=== PATIENT | female | born 1980 | race Caucasian/White ===

== ENCOUNTER → 2020-06-13 13:04 | Outpatient (BNVA) | payer SELFPAY | PROVIDERS: Family Provider Family Medicine; PCP Nurse Practitioner Family; Visit Provider Surgery | DX: Z01.812 Encounter for preprocedural laboratory examination (principal); Z20.828 Contact with and (suspected) exposure to other viral communicable diseases | CPT/HCPCS: 87635 ==

== ENCOUNTER 2020-06-19 06:47 | Day surgery (SDC) | payer SELFPAY ==
[2020-06-18 14:59] VITALS: BMI 27.9
[2020-06-19 07:14] VITALS: BP 111/70; PULSE 62; RESP 18; TEMP 36.2; O2SAT 98
[2020-06-19] MEDS: sodium chloride 0.9% 1,000 ML 30 ML IV (07:28)
--- NOTE | 2020-06-19 08:16 | ANES.PREANE2 ---
Pre-Anesthetic Assessment Pre-Anesthetic Assessment: Height/Weight: Height 1.55 m Weight 67.132 kg Temp Pulse Resp BP Pulse Ox 97.2 F L 62 18 111/70 98 06/19/20 07:14 06/19/20 07:14 06/19/20 07:14 06/19/20 07:14 06/19/20 07:14 Proposed Procedure: Operation Date: 06/19/20 08:20 Proposed Procedures p Excision of Epigastric mass/repair of epigastric hernia 16602 [id number] R19.06 K42.9(Not Applicable) - Mykel Benito MD s Umbilical Hernia Repair [id number] R19.06 K42.9(Not Applicable) - Mykel Benito MD Was Beta Milton taken within 24 hours: N/A Last intake: Intake Last Liquid Date 06/18/20 Last Solid Date 06/18/20 Social: Social History: Tobacco and No alcohol Exam: Pre-Anes Outpt Exam: alert, oriented x 3, clear to auscultation bilaterally and regular rate & rhythm Airway: Submandibular: WNL Cervical ROM: WNL MP: 2 History/ROS: No significant complaints Pulmonary: Pulmonary: None reported CV/HEM: CV/HEM: None reported : : None reported Hepatic: Hepatic: None reported GI: GI: None reported Metabolic: Metabolic: None reported Musc/skel: Musc/skel: Weakness Neuropsych: Neuropsych: None reported Anesthetic Plan: ASA status: 2 Anesthesia: General Meds/Allergies Current Medications: Current Medications Generic Name Dose Route Start Last Admin Trade Name Freq PRN Reason Stop Dose Admin Sodium Chloride 1,000 mls @ 30 ml s/hr 06/19/20 07:00 06/19/20 07:28 Sodium Chloride 0.9% IV 06/20/20 06:59 30 mls/hr .Q24H CALVIN Administration PFSH Anesthesia PFSH: Family History Grandfather Diabetes Social History Smoking and tobacco status: current every day smoker cigarettes Packs smoked per day: 0.5 Alcohol intake: never Desire information about alcohol rehabilitation?: No Counseling given: No Desire information about substance/drug rehabilitation?: No Counseling given: No Adopted: No Caregiver/support person: No Lives independently: Yes Household members: spouse Housing: House Marital status: Number of children: 4 Highest education level completed: High School Graduate service: No Current occupational status: unemployed History of recent travel: No Female Reproductive History: Para: 4 Data Anesthesia Cardiac Studies: No Data to Display
--- NOTE | 2020-06-19 08:24 | W.PM.OPSUD ---
Surgery/Procedure H&P Update DATE OF PROCEDURE: June 19, 2020 DATE H&P PERFORMED: 06/18/20 H&P UPDATE INFORMATION: No changes to prior documentation PREOP DIAGNOSIS: 1. Epigastric mass/hernia.2. Umbilical hernia. PLANNED PROCEDURE: Operation Date: 06/19/20 08:20 Proposed Procedures p Excision of Epigastric mass/repair of epigastric hernia [id number] R19.06 K42.9(Not Applicable) - Mykel Benito MD s Umbilical Hernia Repair [id number] R19.06 K42.9(Not Applicable) - Mykel Benito MD
--- NOTE | 2020-06-19 09:07 | P.OP_ITS ---
Operative Report Date of procedure: June 19, 2020 Pre-op Diagnosis: 1. Epigastric mass/hernia.2. Umbilical hernia. Post-op Diagnosis: 1. Epigastric lipoma measuring over 4 cm in diameter. 2. Umbilical hernia. Procedure Done: 1. Excision of 4+ centimeter lipoma from epigastric region. 2. Repair of umbilical hernia. Specimens removed/disposition: Epigastric lipoma. Surgeon: Mykel Benito Anesthesia: General (LMA) Estimated blood loss (mL): 5 Complications: None. Condition: stable Disposition: PACU Procedure: The patient was brought to the operating room and was placed in a supine position on the operating room table. General anesthesia was induced by means of a laryngeal mask airway. The abdomen was prepped and draped in a sterile fashion. A combination of 1% lidocaine and 0.5% bupivacaine with 1- 200,000 parts epinephrine was used for local anesthesia throughout the procedures. Attention was first directed to the epigastric region. A transverse incision was carried out over the subcutaneous mass and cautery was used to divide the subcutaneous tissue. A well encapsulated lipomatous mass measuring approximately 6-7 cm in greatest diameter was encountered and was removed from the subcutaneous layer. No fascial defect was found anywhere underneath. The wound was irrigated with saline. The dermis was approximated using multiple inverted, interrupted sutures of 3-0 Vicryl and the skin was approximated using a running subcuticular suture of 3-0 Vicryl. A curvilinear incision was then carried out underneath the umbilicus. Sharp dissection and cautery were used to separate the dependent portion of the umbilical skin from the hernia sac. The herniated contents were then freed from the surrounding subcutaneous tissue down to the fascial defect using cautery. The herniated contents were then reduced through the defect which measured approximately 1 cm in diameter. The defect was closed transversely using inverted interrupted sutures of 0 Prolene. Sutures of of 0 Vicryl was used to buttress the repair in between the Prolene sutures. The dependent portion of the umbilical skin was brought back down to the fascial layer with a suture of 0 Vicryl. The wound was irrigated. The skin was reapproximated at the dermal level using some inverted interrupted sutures of 3-0 Vicryl. The skin was approximated using a running subcuticular suture of 4-0 Vicryl. Benzoin and Steri-Strips were placed over the incisions and sterile bandages followed. The patient was taken to the recovery area in stable condition postoperatively.
[2020-06-19 09:12] VITALS: BP 148/72; PULSE 80; RESP 8; TEMP 36.7; O2SAT 96
[2020-06-19 09:15] VITALS: PULSE 78; RESP 14; O2SAT 100
[2020-06-19 09:20] VITALS: BP 127/75; PULSE 79; RESP 18; O2SAT 98
[2020-06-19 09:25] VITALS: BP 122/75; PULSE 77; RESP 20; O2SAT 100
[2020-06-19] MEDS: ondansetron 2 mg/ML SDV 2 mL 4 MG IVP ×2 (09:28→13:17)
[2020-06-19 09:30] VITALS: BP 123/75; PULSE 85; RESP 20; TEMP 36.7; O2SAT 94
--- NOTE | 2020-06-19 10:15 | ANE.PACU2 ---
Inpatient post-anesthesia follow up: Airway intact: Yes Vital signs: Temperature 98.0 F Pulse Rate 85 Respiratory Rate 20 Blood Pressure 123/75 Pulse Oximetry 94 Oxygen Delivery Me thod Room Air Oxygen Flow Rate 6 Fraction of Inspir ed Oxygen Hydration adequate: Yes Nausea and vomiting: No Pain level: 2 Mental status: Baseline
[2020-06-19] MEDS: HYDROcodone-acetaminophen 5-325 mg Tablet 1 TAB PO (13:17)
== END 2020-06-19 10:10 | disposition home or self-care (01) ==
PROVIDERS: Family Provider Family Medicine; PCP Nurse Practitioner Family; Visit Provider Surgery
PROC: (CPT 11406; principal; 2020-06-19 08:15)
PROC: (CPT 11406; 2020-06-19 08:15)
DX: D17.1 Benign lipomatous neoplasm of skin and subcutaneous tissue of trunk (principal); K42.9 Umbilical hernia without obstruction or gangrene; F17.210 Nicotine dependence, cigarettes, uncomplicated
CPT/HCPCS: 11406; 12032; 49585; 12345; 88307; 96374; J0690; J1100; J1200; J1885; J2250; J2405; J2704; J3010; J3490; J7030

== ENCOUNTER 2020-07-07 09:29 | Outpatient (CLI) | payer SELFPAY | END 2020-07-07 09:30 | disposition home or self-care (01) | LOC: LAB 09:32 | PROVIDERS: PCP Nurse Practitioner Family; Visit Provider Nurse Practitioner Family | DX: N30.90 Cystitis, unspecified without hematuria (principal) | CPT/HCPCS: 87086 ==

== ENCOUNTER → 2021-06-10 10:16 | Outpatient (BNVA) | payer SELFPAY | PROVIDERS: PCP Nurse Practitioner Family; Visit Provider Nurse Practitioner Family | DX: J06.9 Acute upper respiratory infection, unspecified (principal); J40 Bronchitis, not specified as acute or chronic; R05.9 Cough, unspecified | CPT/HCPCS: 80053 ==

== ENCOUNTER 2023-04-23 18:17 | Emergency (ER) | payer OTHER, SELFPAY ==
[2023-04-23 18:24] VITALS: BP 138/102; PULSE 96; RESP 17; TEMP 36.4; O2SAT 95; BMI 29.2
--- NOTE | 2023-04-23 18:30 | XRR_ITS ---
PROCEDURE INFORMATION: Exam: XR Chest Exam date and time: 04/23/2023 6:35 PM Age: 42 years old Clinical indication: Shortness of breath; Patient HX: Allergic rxn; Additional info: SOB TECHNIQUE: Imaging protocol: Radiologic exam of the chest. Views: 1 view. COMPARISON: No relevant prior studies available. FINDINGS: Lungs: Unremarkable. No consolidation. Pleural spaces: Unremarkable. No pleural effusion. No pneumothorax. Heart/Mediastinum: Unremarkable. No cardiomegaly. Bones/joints: Unremarkable. XR/XR chest 1V portable [id number] IMPRESSION: No acute findings.
[2023-04-23] MEDS: EPINEPHrine 1 mg/mL INJ 0.3 MG IM (18:34)
[2023-04-23] MEDS: diphenhydrAMINE 50 mg/mL SDV 1mL IVP (18:36)
[2023-04-23] MEDS: famotidine 20 mg/2 mL INJ IVP (18:37)
[2023-04-23] MEDS: methylPREDNISolone sod succ 125 mg/2 mL INJ IVP (18:37)
[2023-04-23 18:46] VITALS: BP 101/78; PULSE 99; RESP 18; O2SAT 100
[2023-04-23 18:54] LABS: Basophils % 0.2 %; Eosinophils # 0.1 10^3/uL (0.0-0.8); Hematocrit 42.1 % (36-47); Lymphocytes # 4.1 10^3/uL (0.8-4.8); Lymphocytes % 33.6 %; Mean Corpuscular HGB Conc 33.7 g/dL (30-55); Mean Corpuscular Hemoglobin 30.7 pg (27-33); Mean Corpuscular Volume 91.1 fl (85-98); Mean Platelet Volume 10.4 fL (7.4-10.4); Monocytes # 0.9 10^3/uL (0.2-0.9); Monocytes % 7.5 %; Neutrophils # 6.97 10^3/uL (1.8-7.7); Neutrophils % 57.3 %; Nucleated Red Blood Cells % 0 %; Platelet Count 371 10^3/cmm (157-399); Red Blood Count 4.62 10^6/uL (3.85-5.65); Red Cell Distribution Width 12.6 % (12.1-15.1); White Blood Count 12.19 10^3/uL (3.29-11.43)
[2023-04-23 19:04] LABS: HCG, Serum Qual Negative (Negative)
[2023-04-23 19:07] VITALS: BP 146/76; PULSE 109; RESP 23; O2SAT 96
[2023-04-23 19:10] LABS: Alanine Aminotransferase 15 U/L (0-33); Albumin Level 4.6 g/dL (3.5-5.2); Alkaline Phosphatase 64 U/L (35-105); Anion Gap 15.9 (5-19); Aspartate Amino Transferase 20 U/L (0-32); Blood Urea Nitrogen 6 mg/dL (6-20); Calcium 9.4 mg/dL (8.5-10.5); Carbon Dioxide 25 mmol/L (22-29); Chloride 107 mmol/L (98-107); Globulin 2.7 g/dL (1.3-4.6); Glomerular Filtration Rate 90.9 mL/min (90-130); Glucose 113 mg/dL (65-115); Osmolality Calculated 296 mOsm/kg (285-295); Potassium 3.9 mmol/L (3.5-5.1); Sodium 144 mmol/L (136-145); Total Bilirubin 0.3 mg/dL (0.15-1.2); Total Protein 7.3 g/dL (6.6-8.7)
[2023-04-23 20:17] VITALS: BP 146/76; PULSE 109; RESP 23; TEMP 36.4; O2SAT 96
--- NOTE | 2023-04-23 21:38 | ED_ITS ---
HPI - Allergic Reaction 2 General: Chief complaint: Allergic Reaction Stated complaint: alergic reaction sob Time Seen by Provider: 04/23/23 18:23 History of Present Illness: HPI narrative: 42-year-old female who has been ill with cough and congestion. She was prescribed Augmentin today, and has taken the medication. Sometime following taking the medication, she developed itchiness in a widespread fashion, some redness to her skin, a feeling of a lump in her throat, and some mild trouble breathing. No vomiting. No diarrhea. Associated symptoms: Reports hoarseness and nausea; Deny abdominal pain or vomiting Review of Systems 2 Const: Denies: fever(s) Eyes: Denies: change in vision ENMT: Reports: throat pain and hoarseness; Denies: swelling of lips/tongue Card: Denies: chest pain or palpitations Resp: Reports: dyspnea and non-productive cough GI: Reports: nausea; Denies: abdominal pain or vomiting PFSH ED 2 PFSH: Family History Grandfather Diabetes Social History Smoking and tobacco/nicotine status: former use of tobacco/nicotine (years ago) Alcohol intake: never Substance/Drug Use: never Adopted: No Caregiver/support person: No Lives independently: Yes Household members: spouse Housing: House Marital status: Number of children: 4 Highest education level completed: High School Graduate service: No Current occupational status: unemployed Female Reproductive History: Para: 4 Physical Exam 2 Const: GENERAL APPEARANCE: cooperative, in distress (Mild) and anxious; not frail appearing HENMT: COMMON NORMALS: normocephalic, atraumatic and Normal external nose present HEAD & SCALP: normocephalic and atraumatic FACE & SINUS: normal facial exam and face symmetric NOSE: Normal external nose present Eye: COMMON NORMALS: Equal, round and reactive pupils present and EOMs intact bilaterally PUPIL: Yes Equal, round and reactive pupils present Neck/C-Spine: GENERAL: Yes trachea midline Chest: CHEST: Yes Symmetrical chest wall rise Resp: COMMON NORMALS: normal respiratory effort, No retractions, No use of accessory muscles and clear to auscultation bilaterally EFFORT & INSPECTION: No stridor AUSCULTATION: clear to auscultation bilaterally and no wheezes Cardio: COMMON NORMALS: regular rate and regular rhythm RATE: regular rate RHYTHM: regular rhythm GI: COMMON NORMALS: Normal to inspection, nondistended, normoactive bowel sounds present Extremity: COMMON NORMALS: no pedal edema Neuro: MARSHA COMA SCALE: document GCS findings Marsha coma scale eye opening: Spontaneous [place] coma scale verbal response: Orientated [place] coma scale motor response: Obey commands Marsha coma scale total score: 15 S ENSORY EXAM: Yes extremities (intact) Psych: COMMON NORMALS: speech normal SPEECH: Yes normal speech Skin: NARRATIVE SKIN EXAM: Generalized skin redness Course 2 Vital Signs: Vital signs: Vital Signs Temperature 97.6 F 04/23/23 20:17 Pulse Rate 109 H 04/23/23 20:17 Respiratory Rate 23 H 04/23/23 20:17 Blood Pressure 146/76 04/23/23 20:17 Pulse Oximetry 96 04/23/23 20:17 Oxygen Delivery Me thod Room Air 04/23/23 19:07 MDM - Allergic Reaction Medical Decision Making Patient was given epinephrine, Solu-Medrol, Benadryl and Pepcid on arrival. She is much improved. No signs of rebound. She will be discharged on a steroid taper to prevent rebound. She will take Benadryl for the next 24 hours then as needed, to return for any worsening symptoms. She will discontinue her Augmentin obviously. Azithromycin as prescribed instead. Outpatient follow-up. Lab Data 04/23/23 18:43 04/23/23 18:43 Radiology Impressions Chest X-Ray 04/23/23 18:30 IMPRESSION: No acute findings. Laboratory Results WBC 12.19 10^3/uL (3.29-11.43) H 04/23/23 18:43 RBC 4.62 10^6/uL (3.85-5.65) 04/23/23 18:43 Hgb 14.20 g/dL (11.27-16.99) 04/23/23 18:43 Hct 42.1 % (36-47) 04/23/23 18:43 MCV 91.1 fl (85-98) 04/23/23 18:43 MCH 30.7 pg (27-33) 04/23/23 18:43 MCHC 33.7 g/dL (30-55) 04/23/23 18:43 RDW 12.6 % (12.1-15.1) 04/23/23 18:43 Plt Count 371 10^3/cmm (157-399) 04/23/23 18:43 MPV 10.4 fL (7.4-10.4) 04/23/23 18:43 Neut % (Auto) 57.3 % 04/23/23 18:43 Lymph % (Auto) 33.6 % 04/23/23 18:43 [place] % (Auto) 7.5 % 04/23/23 18:43 Eos % (Auto) 1.0 % 04/23/23 18:43 Baso % (Auto) 0.2 % 04/23/23 18:43 Neut # (Auto) 6.97 10^3/uL (1.8-7.7) 04/23/23 18:43 Lymph # (Auto) 4.1 10^3/uL (0.8-4.8) 04/23/23 18:43 [place] # (Auto) 0.9 10^3/uL (0.2-0.9) 04/23/23 18:43 Eos # (Auto) 0.1 10^3/uL (0.0-0.8) 04/23/23 18:43 Baso # (Auto) 0.0 10^3/uL (0.0-0.1) 04/23/23 18:43 Nucleated RBC % (auto) 0 % 04/23/23 18:43 Nucleated RBCs # 0.0 /100WBC 04/23/23 18:43 Sodium 144 mmol/L (136-145) 04/23/23 18:43 Potassium 3.9 mmol/L (3.5-5.1) 04/23/23 18:43 Chloride 107 mmol/L (98-107) 04/23/23 18:43 Carbon Dioxide 25 mmol/L (22-29) 04/23/23 18:43 Anion Gap 15.9 (5-19) 04/23/23 18:43 BUN 6 mg/dL (6-20) 04/23/23 18:43 Creatinine 0.7 mg/dL (0.5-0.9) 04/23/23 18:43 GFR Calculation 90.9 mL/min (90-130) 04/23/23 18:43 Glucose 113 mg/dL (65-115) 04/23/23 18:43 Calculated Osmolality 296 mOsm/kg (285-295) H 04/23/23 18:43 Calcium 9.4 mg/dL (8.5-10.5) 04/23/23 18:43 Total Bilirubin 0.3 mg/dL (0.15-1.2) 04/23/23 18:43 AST 20 U/L (0-32) 04/23/23 18:43 ALT 15 U/L (0-33) 04/23/23 18:43 Alkaline Phosphatase 64 U/L (35-105) 04/23/23 18:43 Total Protein 7.3 g/dL (6.6-8.7) 04/23/23 18:43 Albumin 4.6 g/dL (3.5-5.2) 04/23/23 18:43 Globulin 2.7 g/dL (1.3-4.6) 04/23/23 18:43 HCG, Qual Negative (Negative) 04/23/23 18:43 All radiology interpretation(s) finalized by discharge Discharge Plan Discharge Patient Disposition: Home Clinical Impression: Allergic reaction Condition: Stable Prescriptions: New azithromycin 250 mg tablet See Rx Instructions .ROUTE .COMPLEX Qty: 6 0RF Rx Instructions: For 250 mg dose pack: take 500 mg today (day 1), then 250 mg for 4 days (days 2-5) Medrol (Anatoliy) 4 mg tablets,dose pack See Rx Instructions .ROUTE .COMPLEX Qty: 21 0RF Rx Instructions: orally per package directions No Action promethazine-DM 6.25-15 mg/5 mL syrup 5 - 10 ml PO Q6H PRN (Reason: cough) Qty: 200 1RF penicillin V potassium 500 mg tablet 500 mg PO TID 10 Days Qty: 30 0RF albuterol sulfate [ProAir HFA] 90 mcg/actuation HFA aerosol inhaler 2 puff inhalation QID PRN (Reason: shortness of breath or wheezing) Qty: 8.5 6RF budesonide-formoterol [Symbicort] 160-4.5 mcg/actuation HFA aerosol inhaler 2 puff inhalation Q12H Qty: 10.2 6RF progesterone micronized 200 mg capsule 200 mg PO DAILY Discharge Orders: Discharge ED (Routine); Ordered 04/23/23 Ordered By: Jorge Guillen Referrals: Malick Black MD [Primary Care Provider] - 4-7 days Patient Instructions: Allergic Reaction, Opioid Safety, Pain Management Activity Restrictions/Additional Instructions: Take Benadryl, 25 mg 4 times daily for the next 24 hours, then as needed. Other medications as directed. Return for return of itching, swelling, shortness of breath, tightening of the throat. Stop your original antibiotic in favor of the new antibiotic prescribed. Coding Level of Care Code ED Clothes Presser for Eloisa Cruz
== END 2023-04-23 20:18 | disposition home or self-care (01) ==
PROVIDERS: Emergency Provider Emergency Medicine; PCP Family Medicine
DX: L29.9 Pruritus, unspecified (principal); T36.0X5A Adverse effect of penicillins, initial encounter; T36.1X5A Adverse effect of cephalosporins and other beta-lactam antibiotics, initial encounter; Z87.891 Personal history of nicotine dependence
CPT/HCPCS: 71045; 80053; 84703; 85025; 96372; 96374; 96375; 99284; J0171; J1200; J2930; J3490